=== PATIENT | female | born 1955 | race Caucasian/White ===

== ENCOUNTER → 2024-03-03 | Outpatient (CLI) | payer MEDICARE, SELFPAY ==
[2024-03-03 13:29] LABS: Cocci Serology, IgM Negative (Negative)
[2024-03-04 13:52] LABS: Cocci Serology, IgG Negative (Negative)
== END | disposition home or self-care (01) ==
LOC: COPL 11:26
PROVIDERS: PCP Family Medicine; Referring Provider Nurse Practitioner Family; Visit Provider Nurse Practitioner Family
DX: B38.9 Coccidioidomycosis, unspecified (principal)
CPT/HCPCS: 36415; 86331; 86635

== ENCOUNTER → 2024-04-09 | Outpatient (CLI) | payer MEDICARE, SELFPAY ==
--- NOTE | 2024-04-09 10:44 | XR_ITS ---
Examination: PA lateral chest 2 views TECHNIQUE: Upright PA lateral chest 2 views Exam date and time: April 09, 2024 10:50 AM Comparison March 01, 2024 INDICATIONS: Extensive right lung pneumonia on chest film March 01, 2024 FINDINGS: Mild prominence left ventricle No pneumonia in the right lung has resolved There is accentuation of the basilar bronchovascular markings Prominent osteopenia IMPRESSION: Right lung pneumonia has resolved Bibasilar mild bronchitis pattern Suggest continued 3 month follow-up PA lateral chest x-ray
== END | disposition home or self-care (01) ==
LOC: CDIM 10:40
PROVIDERS: PCP Family Medicine; Referring Provider Nurse Practitioner Family; Visit Provider Nurse Practitioner Family
DX: R91.8 Other nonspecific abnormal finding of lung field (principal)
CPT/HCPCS: 71046